=== PATIENT | male | born 2000 | race Caucasian/White ===

== ENCOUNTER 2020-03-12 05:51 | Emergency (ER) | payer SELFPAY ==
[2020-03-12 05:52] VITALS: BP 118/59; PULSE 108; RESP 18; TEMP 36.7; O2SAT 100; BMI 22.3
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
--- NOTE | 2020-03-12 06:00 | EKG12_ITS ---
Test Reason : DYSRHYTHMIA Blood Pressure : / mmHG Vent. Rate : 080 BPM Atrial Rate : 080 BPM P-R Int : 126 ms QRS Dur : 098 ms QT Int : 404 ms P-R-T Axes : 062 066 045 degrees QTc Int : 465 ms Normal sinus rhythm Possible Lateral infarct , age undetermined Abnormal ECG Confirmed by TYRONE YAN ([id number]), city editor DORYS MEHTA ([id number]) on 03/16/2020 2:13:52 PM Referred By: ELIZABETH Confirmed By:TYRONE YAN
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
[2020-03-12 06:12] LABS: Absolute Lymphocyte Count 2.52 X10^3/uL (0.83-4.51); Absolute Neutrophil Count 4.7 X10^3/uL (2.0-7.7); Basophil# 0.08 X10^3/uL; Eosinophil# 0.08 X10^3/uL; Hematocrit 43.9 % (40-54); Hemoglobin 15.8 g/dL (13.0-16.5); Lymphocyte # 2.52 X10^3/ul (4.0); Lymphocyte % 31.1 % (19-41); Mean Corpuscular Hgb 31.3 pg (27.0-32.0); Mean Corpuscular Volume 87.1 fL (80-94); Mean Platelet Vol. 11.4 fl (6.2-12.0); Monocyte# 0.72 X10^3/uL; Monocyte% 8.9 % (0-10); NRBC Flagged by Analyzer 0 % (0-5); Neutrophil # 4.68 X10^3/uL (2.7-7.7); Neutrophil % 57.6 % (47-70); Platelet Count 281 K/mm3 (150-450); RBC Distribution Width SD 38.3 fl (35.1-43.9); Red Blood Count 5.04 M/mm3 (4.6-6.2); White Blood Count 8.1 K/mm3 (4.4-11.0)
[2020-03-12 06:30] LABS: Anion Gap 12 (5-15); BUN 10 mg/dL (7-18); BUN/Creat Ratio 8.7 RATIO (10-20); Calcium,Total 9.7 mg/dL (8.5-10.1); Chloride 103 mmol/L (98-107); Creatinine, Serum 1.15 mg/dL (0.70-1.30); EST Glomerular Filtration Rate 86 mL/min (>60); Est Glom Filt Rate - Afr Amer 104 mL/min (>60); Estimated Creatinine Clearance 85.51 ml/min; Glucose 105 mg/dL (74-106); Potassium 3.8 mmol/L (3.5-5.1); Sodium Level 138 mmol/L (136-145)
[2020-03-12] MEDS: Naloxone 2 MG/2 ML Syringe 1 MG IV (06:46)
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
[2020-03-12 07:12] LABS: Bacteria 0 SEEN /hpf (None Seen); Mucous, Urine 0 SEEN /hpf (<or=2+); Red Blood Cells-Urine 0 SEEN /hpf (0-5); White Blood Cells 0 SEEN /hpf (0-5)
[2020-03-12 07:14] VITALS: PULSE 69; RESP 18; O2SAT 96
[2020-03-12 07:27] LABS: Amphetamine Urine VISTA POSITIVE (<1000 ng/mL); Barbiturate Urine VISTA NEGATIVE (< 200 ng/mL); Benzodiazepine Urine VISTA POSITIVE (< 200 ng/mL); Cocaine Urine VISTA NEGATIVE (< 300 ng/mL); Ecstacy Urine VISTA POSITIVE (< 500 ng/mL); Methadone Urine VISTA NEGATIVE (< 300 ng/mL); PCP Urine VISTA NEGATIVE (< 25 ng/mL); THC Urine VISTA POSITIVE (< 50 ng/mL); Vista UDS pH Range 6
[2020-03-12 07:34] LABS: Color, Urine Yellow (Yellow); Glucose, Dipstick Normal (Normal); Ketone-Dipstick Negative (Negative); Leukocyte Esterase-Dipstick Negative /ul (Negative); Nitrite-Dipstick Negative (Negative); Occult Blood-Urine Negative /ul (Negative); Protein-Dipstick Negative (Negative); Urine Bilirubin Dipstick Negative (Negative); Urine Clarity Sl. Cloudy (Clear); Urine Urobilinogen 1 mg/dl (Normal)
[2020-03-12 07:50] LABS: Squamous Epithelial Cells - UA 0-5 SEEN /hpf (0-5)
[2020-03-12 09:46] VITALS: BP 115/81; PULSE 65; RESP 15; O2SAT 99
[2020-03-13 07:41] LABS: Bedside Glucose 68 mg/dL (70-110)
== END 2020-03-12 10:09 | disposition home or self-care (01) ==
PROVIDERS: Emergency Provider Emergency Medicine
DX: S80.02XA Contusion of left knee, initial encounter (principal); F19.10 Other psychoactive substance abuse, uncomplicated; F17.200 Nicotine dependence, unspecified, uncomplicated; F41.9 Anxiety disorder, unspecified; Z79.899 Other long term (current) drug therapy; V43.52XA Car driver injured in collision with other type car in traffic accident, initial encounter; Y93.I9 Activity, other involving external motion; Y92.410 Unspecified street and highway as the place of occurrence of the external cause; Y99.8 Other external cause status
CPT/HCPCS: 70450; 71045; 72125; 73030; 73502; 73560; 80048; 80307; 80320; 81001; 82962; 85025; 93005; 99285; P9612; A4216; G0480

== ENCOUNTER 2022-06-21 02:55 | Emergency (ER) | payer SELFPAY ==
[2022-06-21 02:56] VITALS: BP 134/96; PULSE 74; RESP 15; TEMP 37.1; O2SAT 99; BMI 17.5
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
[2022-06-21] MEDS: Diphth,Pertuss(Acell),Tet Vac 0.5 ML Vial IM (03:07)
[2022-06-21] MEDS: Ondansetron 4 MG/2 ML Vial IV (03:07)
[2022-06-21] MEDS: Morphine 4 MG/ML Syringe IV ×2 (03:08→03:38)
[2022-06-21] MEDS: Cefazolin 2 GM in 0.9% Normal Saline 100 ML IV (03:09)
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
[2022-06-21 03:23] LABS: Absolute Lymphocyte Count 3.91 X10^3/uL (0.83-4.51); Absolute Neutrophil Count 3.3 X10^3/uL (2.0-7.7); Basophil# 0.08 X10^3/uL; Basophil% 0.9 % (0-1); Eosinophil# 0.25 X10^3/uL; Eosinophils% 2.9 % (0-5); Hematocrit 39.8 % (40-54); Hemoglobin 14.3 g/dL (13.0-16.5); Lymphocyte # 3.91 X10^3/ul (0.83-4.51); Lymphocyte % 45.8 % (19-41); Mean Corp Hgb Conc 35.9 g/dL (32-36); Mean Corpuscular Hgb 31.1 pg (27.0-32.0); Mean Corpuscular Volume 86.5 fL (80-94); Mean Platelet Vol. 10.7 fl (6.2-12.0); Monocyte# 1.05 X10^3/uL; Monocyte% 12.3 % (0-10); NRBC Flagged by Analyzer 0.2 % (0-5); Neutrophil # 3.25 X10^3/uL (2.7-7.7); Neutrophil % 38.1 % (47-70); Platelet Count 268 K/mm3 (150-450); RBC Distribution Width CV 12.7 % (11.6-14.6); RBC Distribution Width SD 39.4 fl (35.1-43.9); White Blood Count 8.5 K/mm3 (4.4-11.0)
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
[2022-06-21] MEDS: LORazepam 2 MG/ML Syringe 1 MG IV (03:37)
[2022-06-21 04:29] LABS: Anion Gap 12 (5-15); BUN 11 mg/dL (7-18); BUN/Creat Ratio 8.3 RATIO (10-20); Calcium,Total 9.7 mg/dL (8.5-10.1); Chloride 105 mmol/L (98-107); Creatinine, Serum 1.32 mg/dL (0.70-1.30); EST Glomerular Filtration Rate 72 mL/min (>60); Est Glom Filt Rate - Afr Amer 87 mL/min (>60); Estimated Creatinine Clearance 74.87 ml/min; Glucose 100 mg/dL (74-106); Potassium 4.3 mmol/L (3.5-5.1); Sodium Level 139 mmol/L (136-145)
--- NOTE | 2022-06-21 04:32 | ED.RN ---
[facility] ETA [id number]
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
[2022-06-21 04:53] LABS: Alcohol, Blood (Medical)-Serum < 3.0 mg/dL
[2022-06-21 05:16] VITALS: O2SAT 97
== END 2022-06-21 05:18 | disposition short-term general hospital (02) ==
PROVIDERS: Emergency Provider Emergency Medicine; Visit Provider Emergency Medicine
DX: S51.832A Puncture wound without foreign body of left forearm, initial encounter (principal); F17.210 Nicotine dependence, cigarettes, uncomplicated; Y24.9XXA Unspecified firearm discharge, undetermined intent, initial encounter; Z23 Encounter for immunization
CPT/HCPCS: 73060; 73090; 80048; 82077; 85025; 90471; 90715; 96365; 96375; 99282; A4216; J2405